=== PATIENT | female | born 1955 | race Native Hawaiian/Other Pacific Islander ===

== ENCOUNTER 2023-04-29 15:03 | Outpatient (CLI) | payer OTHER ==
[2023-04-29 15:57] LABS: PLATELET COUNT 37 K/uL (152-353)
== END 2023-04-29 19:26 | disposition home or self-care (01) ==
LOC: LAB 15:03
PROVIDERS: ATTEND Orthopaedic Surgery
DX: M01.X0 Direct infection of unspecified joint in infectious and parasitic diseases classified elsewhere (principal)
CPT/HCPCS: 85027; 85652; 86141